=== PATIENT | female | born 2000 | race Caucasian/White ===

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

== ENCOUNTER → 2022-05-19 09:49 | Outpatient (CLI) | payer OTHER, SELFPAY ==
--- NOTE | 2022-05-19 09:50 | MR_ITS ---
FINAL REPORT TECHNIQUE: Multiplanar and multisequence imaging of the lumbar spine was obtained without contrast. CLINICAL HISTORY: back pain. right sided leg and back pain. symptoms for years. FINDINGS: There is normal alignment of the lumbar vertebral bodies. Vertebral body height is preserved. The spinal cord ends at the level of L1. There is normal signal intensity within the substance of the distal spinal cord. Bone marrow signal intensity is normal. No acute paraspinal abnormality is identified. L1-2: There is no focal disc herniation, central canal stenosis or neuroforaminal narrowing. L2-3: There is no focal disc herniation, central canal stenosis or neuroforaminal narrowing. L3-4: An annular disc bulge is present. There is no canal stenosis or neural foraminal narrowing. L4-5: There is a central disc protrusion moderate to severe central canal stenosis. There is bilateral facet osteoarthropathy, right greater than left. There is mild bilateral neural foraminal narrowing. L5-S1: Disc protrusion with moderate central canal stenosis. IMPRESSION: Central disc protrusions at L4-5 and L5-S1. Reviewed, Interpreted and Dictated by Kasey Oleary MD Transcribed by Leydi Torres Authenticated and . [facility]
== END ==
PROVIDERS: PCP Emergency Medicine; Visit Provider Emergency Medicine
DX: M54.9 Dorsalgia, unspecified (principal); M54.50 Low back pain, unspecified
CPT/HCPCS: 72148; 76376

== ENCOUNTER 2022-06-15 08:30 | Outpatient (RCR) | payer OTHER, SELFPAY ==
--- NOTE | 2022-05-19 09:40 | HMH.PTOPEV ---
PT Outpatient Evaluation Rehab PT Outpatient Evaluation Start: 05/19/22 08:38 Freq: Status: Active Protocol: Document 05/19/22 09:13 PROMISE (Rec: 05/19/22 09:38 PROMISE [id number]) E-signed By Brandon Velázquez, PT Outpatient Therapy Subjective History Subjective History Patient is a 21 year old female presenting to outpatient PT with reports of chronic LBP with intermittent RLE radicular symptoms to right knee and foot. Most recent imaging indicates multi -level disc bulges. Patient reports initial injury occurred in 2019 after a slip and fall on ice. Comorbidities include hx of anxiety/ depression. Chief Complaint Pain,Paresthesia Symptom Type Ache,Shooting Symptoms Relieved By Rest/Positioning,OTC Meds Symptoms Aggravated By Standing,Physical Activity, Walking Prior Functional Limitations None Current Functional Limitations Reaching,Lifting,Housework, Standing,Walking,Bending/ Stooping Symptom Description Constant but Variable Level of pain today (0-10) 3 Pain scale - at its best (0-10) 3 Pain scale - at its worst (0-10) 6 Lumbopelvic Eval Posture Thoracic Spine Posture Standing Position Neutral Lumbar Spine Posture Standing Position Increased Lordosis Palapation tenderness bilateral lumbar spinal tenderness Yes: L2-5 3/4 Accessory Movement L2 bilateral L3 bilateral L4 bilateral Range of Motion Lumbar Spine Active Flexion Range of 40 Motion (degrees) Lumbar Spine Active Extension Range of 15 Motion (degrees) Left Lumbar Spine Lateral Flexion Active 12 Range of Motion (degrees) Right Lumbar Spine Lateral Flexion 16 Active Range of Motion (degrees) Lumbar Spine ROM Limitations Soft Tissue Tightness,Bony Restriction Manual Muscle Test Left Knee Extension Strength Grade 4- Good- Altered Sensation Right LE Dermatome Level L5,S1 Special Tests Hip Gaston (CAROLYN) Test Positive Left,Positive Right Hip Rosmery Test Positive Left,Positive Right Hip Piriformis Test Positive Left,Positive Right Shon Test Positive Sacroiliac Joint Compression Test Negative Left,Negative Right Sacroiliac Joint Distraction Test Negative Left,Negative Right
--- NOTE | 2022-06-15 11:19 | HMH.RHREAS ---
Rehab Reassessment Rehab OP Re-assessment Start: 06/15/22 08:58 Freq: Status: Active Protocol: Document 06/15/22 11:13 PHOAdalbertoJACINDA (Rec: 06/15/22 11:18 PHORJACINDA [id number]) E-signed By Papo Gilmore, PT Rehab Re-assessment Subjective Subjective Pt reports pain 3/10 in low back this am. I don't have any shooting in muy legs, it's pretty much in my back only now. Objective Objective Notes Lumbar AROM (in deg): FLEX= 0- 50, EXT= 0-20, R SB= 0-20, L SB= 0-20. Pain 3/10 this date. Assessment Progress Assessment Progressing as Expected Assessment Notes Pt has shown significant reduction in muscle tightness in B LE and lumbar paraspinals to this point. Reduced pain noted as well with no radicular symptoms in R LE at this time. She does continue to c/o pain in the lumbar spine, worse with certain movements. She continues to need skilled intervention to return to prior level of function. Patient goals met ST,2 Goals Not Met LT,2,3,4,5,6,7 Revised Goals none Plan Plan Continue per initial POC Frequency of Therapy 2 x/wk Duration of therapy 4 wks Time and Billing Re-Eval Time 15 Re-Eval Billing Units 1 PHYSICIAN CERTIFICATION: I certify the specified therapy services for Janey Bone are required, authorized, and reviewed every 30 days.
== END 2022-06-15 08:35 | disposition home or self-care (01) ==
LOC: PT 08:30
PROVIDERS: PCP Emergency Medicine; Visit Provider Emergency Medicine
DX: M54.9 Dorsalgia, unspecified (principal); M54.50 Low back pain, unspecified
CPT/HCPCS: 97010; 97014; 97110; 97163; 97164; G0283

== ENCOUNTER 2022-12-13 09:47 | Emergency (ER) | payer OTHER, SELFPAY ==
[2022-12-13 10:00] VITALS: BP 113/68; PULSE 100; RESP 20; TEMP 36.9; O2SAT 98; BMI 27.9
[2022-12-13 10:20] LABS: UTC Strep Screen (Rapid) Negative (Negative)
--- NOTE | 2022-12-13 10:28 | EXP.UTC ---
Discharge Plan Disposition Patient Disposition: Home, Self-Care Condition: Good Prescriptions Prescriptions: New fluticasone propionate [Flonase Allergy Relief] 50 mcg/actuation spray,suspension 1 - 2 spray intranasal DAILY Qty: 16 0RF Rx Instructions: administer into each nostril No Action buspirone 10 mg tablet 10 mg PO BID Qty: 60 1RF Vraylar 1.5 mg capsule 1.5 mg PO DAILY Qty: 30 1RF Referrals Follow up/Referrals: Jung Dhillon MD [Primary Care Provider] - See instructions Activity Restrictions/Add. Instructions Additional Instructions/Restrictions: *Monitor Temp, Over the counter Motrin or Tylenol as directed/as needed Tylenol every 4 hours and Motrin every 6 hours (as long as your family doctor has told you that you can take it) for fever or pain. and straight to ER if unable to lower temp less than 101.0 after medication given *Warm salt water gargles may help to soothe the throat *Throat Lozenges? *Warm fluids like tea with honey may help to soothe the throat? *Sleep elevated *Humidifier/Vaporizer *Flonase 2 sprays in each nostril daily but be aware that it may take 2-3 days before you notice improvement Follow up IMMEDIATELY for new or worsening symptoms or no Noticeable improvement over the next 48-72 hours. 911 for difficulty breathing or swallowing Clinical Impressions Clinical Impression: Dysfunction of left eustachian tube Instructions Patient Instructions: DI for Eustachian Tube Dysfunction-Adult Discharge ED Provider: Desi Fernandez [facility] General Stated complaint: ear pain sore throat Mode of Arrival: Ambulatory Source of Information: Patient Limitations: No Limitations Time Seen by Provider: 12/13/22 10:28 Description of Symptoms (Recalled from Triage Doc. by RN): PATIENT C/O SORE THROAT AND LEFT EAR PAIN SINCE YESTERDAY HEENT Symptoms (Recalled from RN notes): Yes Resp Symptoms (Recalled from RN notes): No Skin Symptoms (Recalled from RN notes): No MS Symptoms (Recalled from RN notes): No Functional Status (Recalled from RN notes): WNL History of Present Illness Provider Complaint: Patient states that she has been having sore throat and ear pain/fullness since yesterday States that today she was still hurting so she came in to get checked Related Data Previous Rx's Medication Instructions Recorded buspirone 10 mg tablet 10 mg PO BID #60 tabs 10/26/22 cariprazine 1.5 mg capsule 1.5 mg PO DAILY #30 caps 10/26/22 (Vraylar) fluticasone propionate 50 1 - 2 spray intranasal DAILY #16 12/13/22 mcg/actuation nasal grams spray,suspension (Flonase Allergy Relief) Allergies Allergy/AdvReac Type Severity Reaction Status Date / Time No Known Allergies Allergy Verified 10/26/22 10:32 Worker's Comp Is this a Worker's Comp case?: No [facility] Disclaimer: The information contained in this section may have been updated after the patient was seen, as this information can be updated by other users. 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 (Updated 12/13/22 @ 10:30 by Desi Fernandez APRN) Generalized anxiety disorder Major depressive disorder Family History (Updated 07/06/22 @ 09:45 by Angela Rasheed APRN) Mother Substance abuse FHx: mental illness Father Alcoholism Social History (Updated 07/06/22 @ 09:22 by Angela Rasheed APRN) Smoking Status: Never smoker second hand exposure: No alcohol intake: never counseling given: No substance use type: marijuana counseling given: Yes (she states that she does this for pain; she doesn't want narcotics) current occupational status: employed Travel in the last 8 weeks: None adopted: No caregiver/support person: No foster care: No household members: significant other and other details: brother housing: house lives independently: Yes marital status: single number of children: 0 number of grandchildren: 0 service: No nursing h
[2022-12-13 10:35] VITALS: BP 113/68; PULSE 100; RESP 20; TEMP 36.9; O2SAT 98
== END 2022-12-13 10:43 | disposition home or self-care (01) ==
LOC: ER 09:52 → UTC 09:52
PROVIDERS: Emergency Provider Nurse Practitioner; PCP Emergency Medicine
DX: H69.92 Unspecified Eustachian tube disorder, left ear (principal); F41.1 Generalized anxiety disorder; F33.9 Major depressive disorder, recurrent, unspecified
CPT/HCPCS: 87880; 99212; 99213; G0463

== ENCOUNTER 2023-02-01 10:40 | Emergency (ER) | payer OTHER, SELFPAY ==
[2023-02-01 11:15] VITALS: BP 116/71; PULSE 93; RESP 18; TEMP 36.9; O2SAT 99; BMI 27.8
[2023-02-01 11:34] LABS: UTC Influenza A Antigen Negative (Negative); UTC Influenza B Antigen Negative (Negative)
--- NOTE | 2023-02-01 11:44 | EXP.UTC ---
Discharge Plan Disposition Patient Disposition: Home, Self-Care Condition: Good Prescriptions Prescriptions: New ondansetron 4 mg tablet,disintegrating 4 mg PO Q8H PRN (Reason: nausea and vomiting) Qty: 7 0RF No Action buspirone 10 mg tablet 10 mg PO BID Qty: 60 1RF Vraylar 1.5 mg capsule 1.5 mg PO DAILY Qty: 30 1RF Referrals Follow up/Referrals: Hubert Hurley DO [Primary Care Provider] - See instructions Activity Restrictions/Add. Instructions Additional Instructions/Restrictions: Monitor temperature. Seek treatment if fever develops. Follow-up immediately if new or worse symptoms worsen or no noticeable improvement over 48 hours. Increase fluids such as water, Gatorade, Powerade, juice or Pedialyte with limited formula/dietary in children No food is okay as long as you are drinking. Once ready to eat start bland such as bananas, rice, applesauce, toast. Contagious until no diarrhea, vomiting, fever times 48 hours without medication Avoid antidiarrheals unless told otherwise. Best to let the virus run its course. Follow-up immediately for new or worsening symptoms or no noticeable improvement over the next 48 hours. Clinical Impressions Clinical Impression: Nausea & vomiting Qualifiers: Vomiting type: unspecified Qualified Code(s): R11.2 - Nausea with vomiting, unspecified Diarrhea Qualifiers: Diarrhea type: unspecified type Qualified Code(s): R19.7 - Diarrhea, unspecified Stand Alone Forms Stand Alone Forms: Work/School Release Instructions Patient Instructions: Nausea and Vomiting-Adult, Diarrhea [facility]charge [facility]Gavin [facility] [place] HPI General Stated complaint: vomiting,diarrhea,headache Mode of Arrival: Ambulatory Source of Information: Patient Limitations: No Limitations Time Seen by Provider: 02/01/23 11:44 Description of Symptoms (Recalled from Triage Doc. by RN): nasuea, vomiting, MANN, and diarrhea HEENT Symptoms (Recalled from RN notes): Yes Resp Symptoms (Recalled from RN notes): No Skin Symptoms (Recalled from RN notes): No MS Symptoms (Recalled from RN notes): No Functional Status (Recalled from RN notes): n/a History of Present Illness Provider Complaint: 22 yr old female presents nausea, vomiting, MANN, and diarrhea, denies fever Related Data Previous Rx's Medication Instructions Recorded buspirone 10 mg tablet 10 mg PO BID #60 tabs 12/28/22 cariprazine 1.5 mg capsule 1.5 mg PO DAILY #30 caps 12/28/22 (Vraylar) ondansetron 4 mg disintegrating 4 mg PO Q8H PRN nausea and 02/01/23 tablet vomiting #7 tabs Allergies Allergy/AdvReac Type Severity Reaction Status Date / Time No Known Allergies Allergy Verified 02/01/23 11:24 Worker's Comp Is this a Worker's Comp case?: No PFSH PFS Disclaimer: The information contained in this section may have been updated after the patient was seen, as this information can be updated by other users. 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) Smoking Status: Never smoker second hand exposure: No alcohol intake: never counseling given: No substance use type: marijuana counseling given: Yes (she states that she does this for pain; she doesn't want narcotics) current occupational status: employed Travel in the last 8 weeks: None adopted: No caregiver/support person: No foster care: No household members: significant other and other details: brother housing: house lives independently: Yes marital status: single number of children: 0 number of grandchildren: 0 service: No mcfp: No Hx Recent Travel: No sexually active: Yes are you practici
[2023-02-01 12:21] VITALS: BP 116/71; PULSE 93; RESP 18; TEMP 36.9; O2SAT 99
[2023-02-01 14:09] LABS: Adenovirus,PCR Not Detected (NotDetected); Coronavirus 19, PCR Not Detected (NotDetected); Coronavirus 229E Not Detected (NotDetected); Coronavirus NL63 Not Detected (NotDetected); Coronavirus OC43 Not Detected (NotDetected); Coronovirus HKU1,PCR Not Detected (NotDetected); Human Metapneumovirus Not Detected (NotDetected); Influenza A, PCR Not Detected (NotDetected); Influenza AH1, 2009 Not Detected (NotDetected); Influenza AH1, PCR Not Detected (NotDetected); Influenza AH3,PCR Not Detected (NotDetected); Influenza B, PCR Not Detected (NotDetected); Parainfluenza 1, PCR Not Detected (NotDetected); Parainfluenza 2, PCR Not Detected (NotDetected); Parainfluenza 3, PCR Not Detected (NotDetected); Parainfluenza 4, PCR Not Detected (NotDetected); Respiratory Syncytial Virus Not Detected (NotDetected); Rhinovirus/Enterovirus Not Detected (NotDetected)
== END 2023-02-01 12:15 | disposition home or self-care (01) ==
PROVIDERS: Emergency Provider Nurse Practitioner Family; PCP Internal Medicine
DX: R11.2 Nausea with vomiting, unspecified (principal); R19.7 Diarrhea, unspecified; R51.9 Headache, unspecified
CPT/HCPCS: 87632; 87635; 87804; 99212; 99214; G0463

== ENCOUNTER 2023-03-10 18:24 | Outpatient (CLI) | payer OTHER, SELFPAY ==
[2023-03-10 18:26] LABS: Basophils # 0.1 K/mm3 (0-0.2); Basophils % 0.5 % (0.1-2.0); Eosinophils % 0.2 % (0.1-12.0); Hematocrit 37.9 % (37.0-47.0); Hemoglobin 14.2 g/dL (12.2-16.2); Lymphocytes # 1.9 K/mm3 (0.7-4.5); Lymphocytes % 21.9 % (10-50); Mean Corpuscular HGB Conc 37.6 g/dL (31.8-35.4); Mean Corpuscular Hemoglobin 34.7 pg (27.0-31.2); Mean Corpuscular Volume 92.1 fl (81-99); Mean Platelet Volume 8.9 fl (7.4-10.4); Monocytes # 0.4 K/mm3 (0.1-1.0); Monocytes % 4.4 % (1.7-9.3); Neutrophils # 6.4 K/mm3 (1.8-7.8); Neutrophils % 73.1 % (37.0-80.0); Platelet Count 285 K/mm3 (142-424); Red Blood Count 4.11 M/mm3 (4.20-5.40); Red Cell Distribution Width 12.6 % (11.5-17.5); White Blood Count 8.8 K/mm3 (4.5-13.0)
[2023-03-10 19:45] LABS: Chloride 105 mmol/L (98-107); Potassium 3.9 mmoL/L (3.5-5.1); Sodium 142 mmol/L (136-145)
[2023-03-10 19:48] LABS: Alanine Aminotransferase 25 U/L (12-78); Albumin Level 4.8 g/dl (3.5-5.0); Albumin/Globulin Ratio 1.7 (1.1-1.8); Alkaline Phosphatase 52 U/L (38-126); Anion Gap 16.9 mEq/L (5-15); Aspartate Amino Transferase 25 U/L (14-36); Bilirubin,Total 0.7 mg/dl (0.2-1.3); Blood Urea Nitrogen 10 mg/dl (7-17); Carbon Dioxide 24 mmol/L (22.0-30.0); Estimated Glomerular Filt Rate 127 ml/min (>60); GFR (African American) 154 ML/MIN (>60); Globulin 2.8 g/dL (1.3-3.2); Total Protein,Serum 7.6 g/dl (6.3-8.2)
[2023-03-10 19:49] LABS: Calcium 9.3 mg/dl (8.4-10.2); Glucose 77 mg/dl (74-100)
[2023-03-13 15:09] LABS: Tissue Transglutaminase IgA Ab <2 U/mL (0-3); Tissue Transglutaminase IgG Ab 8 U/mL (0-5)
== END 2023-03-10 23:59 ==
LOC: LAB.DROPOF 18:24
PROVIDERS: PCP Internal Medicine; Visit Provider Internal Medicine
DX: K52.9 Noninfective gastroenteritis and colitis, unspecified (principal); R11.2 Nausea with vomiting, unspecified; R19.7 Diarrhea, unspecified; R76.8 Other specified abnormal immunological findings in serum
CPT/HCPCS: 80053; 83516; 85025

== ENCOUNTER 2023-03-14 15:02 | Emergency (ER) | payer OTHER, SELFPAY ==
[2023-03-14 15:32] VITALS: BP 130/84; PULSE 100; RESP 18; TEMP 36.9; O2SAT 96; BMI 29.9
--- NOTE | 2023-03-14 15:35 | US_ITS ---
FINAL REPORT CLINICAL HISTORY: ruq pain and vomitngi COMPARISON: None FINDINGS: Sonographic images of the right upper quadrant were obtained. The pancreas is partially obscured.The liver has an unremarkable appearance. No gallstones are seen, although decubitus images suggest that there is minimal sludge present in the gallbladder. There is no evidence of biliary ductal dilatation.The common duct measures 2 mm. Limited images of the right kidney are unremarkable. IMPRESSION: Decubitus views suggest that there is minimal sludge present in the gallbladder. No biliary ductal dilatation is seen. Reviewed, Interpreted and Dictated by Sam Mackey MD Transcribed by Nidia Archuleta Authenticated and [facility]
[2023-03-14] MEDS: ONDANSETRON 4MG/2ML VIAL 4 MG IV (15:43)
[2023-03-14] MEDS: KETOROLAC 30MG/ML VIAL 15 MG IV (15:43)
[2023-03-14] MEDS: LACTATED RINGERS 1000ML 1,000 ML 999 ML IV (15:44)
[2023-03-14] MEDS: ACETAMINOPHEN 1,000MG/100ML VIAL 1000 MG IV (15:44)
[2023-03-14 15:48] LABS: Microscopic, Urine URINE MICROSCOPIC (MICROSCOPIC)
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
[2023-03-14 15:53] LABS: Appearance,Urine CLEAR (Clear); Blood, Urine Negative (Negative); Color,Urine YELLOW (Yellow); Glucose,Urine (UA) Negative (Negative); Ketones,Urine 2+ (Negative); Leukocyte Esterase,Urine Negative (Negative); Nitrate,Urine Negative (Negative); Protein,Urine TRACE (Negative); Specific Gravity, Urine >= 1.030 (1.005-1.030); Urobilinogen,Urine 0.2 EU/dl (0.2)
[2023-03-14 15:54] LABS: Basophils % 0.4 % (0.1-2.0); Eosinophils % 0.3 % (0.1-12.0); Hematocrit 42.8 % (37.0-47.0); Lymphocytes # 1.7 K/mm3 (0.7-4.5); Lymphocytes % 18.3 % (10-50); Mean Corpuscular HGB Conc 32.7 g/dL (31.8-35.4); Mean Corpuscular Hemoglobin 30.3 pg (27.0-31.2); Mean Corpuscular Volume 92.7 fl (81-99); Mean Platelet Volume 8.4 fl (7.4-10.4); Monocytes # 0.5 K/mm3 (0.1-1.0); Monocytes % 5.7 % (1.7-9.3); Neutrophils # 6.8 K/mm3 (1.8-7.8); Neutrophils % 75.3 % (37.0-80.0); Platelet Count 298 K/mm3 (142-424); Red Blood Count 4.61 M/mm3 (4.20-5.40); Red Cell Distribution Width 12.6 % (11.5-17.5); White Blood Count 9.1 K/mm3 (4.5-13.0)
[2023-03-14 15:55] LABS: Chloride 107 mmol/L (98-107); Sodium 140 mmol/L (136-145)
[2023-03-14 15:56] LABS: Bilirubin,Urine 1+ (Negative)
[2023-03-14 15:56] LABS: Potassium 3.7 mmoL/L (3.5-5.1)
[2023-03-14 15:58] LABS: Alanine Aminotransferase 30 U/L (12-78); Anion Gap 11.7 mEq/L (5-15); Aspartate Amino Transferase 30 U/L (14-36); Bilirubin,Total 0.6 mg/dl (0.2-1.3); Blood Urea Nitrogen 7 mg/dl (7-17); Carbon Dioxide 25 mmol/L (22.0-30.0); Creatinine Clearance Estimated 181 mL/min (50-200); Estimated Glomerular Filt Rate 127 ml/min (>60); GFR (African American) 154 ML/MIN (>60)
[2023-03-14 15:59] LABS: Albumin Level 4.6 g/dl (3.5-5.0); Albumin/Globulin Ratio 1.5 (1.1-1.8); Alkaline Phosphatase 54 U/L (38-126); Calcium 9.4 mg/dl (8.4-10.2); Globulin 3.1 g/dL (1.3-3.2); Glucose 106 mg/dl (74-100); Total Protein,Serum 7.7 g/dl (6.3-8.2)
[2023-03-14 16:04] LABS: C-Reactive Protein 0.8 mg/L (0-4)
[2023-03-14 16:08] LABS: RBC,Urine Occasional #/hpf (0-3)
[2023-03-14 16:09] LABS: Bacteria,Urine Trace /lpf
[2023-03-14 16:20] LABS: HCG,Quantitative < 2 mIU/ml (0-5.42)
[2023-03-14 16:21] LABS: Erythrocyte Sedimentation Rate 9 mm/hr (0-20)
[2023-03-14 16:42] LABS: Lipase 32 U/L (23-300)
[2023-03-14 17:25] VITALS: BP 124/72; PULSE 92; RESP 18; TEMP 36.9; O2SAT 98
== END 2023-03-14 17:27 | disposition home or self-care (01) ==
PROVIDERS: Emergency Provider Emergency Medicine; PCP Internal Medicine
DX: R10.84 Generalized abdominal pain (principal); R11.2 Nausea with vomiting, unspecified; R19.7 Diarrhea, unspecified; R63.4 Abnormal weight loss
CPT/HCPCS: 76705; 80053; 81001; 83690; 84702; 85025; 85651; 86140; 96361; 96374; 96375; 99285; J0131; J2405

== ENCOUNTER 2023-03-22 13:54 | Outpatient (CLI) | payer OTHER, SELFPAY ==
[2023-03-22 13:59] LABS: Adenovirus F 40/41, stool Not Detected (NotDetected); Astrovirus Not Detected (NotDetected); Campylobacter Not Detected (NotDetected); Clostridium Difficile A/B, PCR Not Detected (NotDetected); Cryptosporidium Not Detected (NotDetected); Cyclospora Cayetanesis Not Detected (NotDetected); Entamoeba histolytica Not Detected (NotDetected); Enteroaggregative E coli Not Detected (NotDetected); Enteropathogenic E coli Not Detected (NotDetected); Enterotoxigenic E coli Not Detected (NotDetected); Giardia lamblia Not Detected (NotDetected); Norovirus Not Detected (NotDetected); Plesimonas Shigalloides, PCR Not Detected (NotDetected); Rotavirus A Not Detected (NotDetected); Salmonella, PCR Not Detected (NotDetected); Sapovirus Not Detected (NotDetected); Shiga-like toxin E coli Not Detected (NotDetected); Shigella Enterovasive E coli Not Detected (NotDetected); Vibrio Cholerae Not Detected (NotDetected); Vibrio, PCR Not Detected (NotDetected); Yersinia Entercolitica, PCR Not Detected (NotDetected)
[2023-03-26 22:08] LABS: Calprotectin, Fecal 122 ug/g (0-120)
== END 2023-03-22 23:59 ==
LOC: LAB.DROPOF 13:55
PROVIDERS: PCP Internal Medicine; Visit Provider Internal Medicine
DX: R10.9 Unspecified abdominal pain (principal); R11.2 Nausea with vomiting, unspecified; R19.7 Diarrhea, unspecified; R89.3 Abnormal level of substances chiefly nonmedicinal as to source in specimens from other organs, systems and tissues; R19.5 Other fecal abnormalities
CPT/HCPCS: 83993; 87507

== ENCOUNTER 2023-05-11 12:47 | Day surgery (SDC) | payer OTHER, SELFPAY ==
[2023-05-08 13:02] VITALS: BMI 28.1
[2023-05-11 13:24] VITALS: BP 110/60; PULSE 89; RESP 16; TEMP 36.1; O2SAT 98
[2023-05-11] MEDS: LACTATED RINGERS 1000ML 1,000 ML 25 ML IV (13:29)
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
[2023-05-11 13:44] LABS: Urine Pregnancy, HCG Qual. Negative (Negative)
[2023-05-11 14:06] VITALS: O2SAT 98
[2023-05-11 14:20] VITALS: BP 98/54; PULSE 111; RESP 16; O2SAT 92
[2023-05-11 14:30] VITALS: BP 97/60; PULSE 86; RESP 16; O2SAT 99
[2023-05-11 14:40] VITALS: BP 102/56; PULSE 86; RESP 16; O2SAT 99
--- NOTE | 2023-05-25 13:42 | HMH.SCOPE ---
Procedure: Date: 05/25/23 Patient Date of :: 2000 Procedure Performed:: EGD & biopsies Indications:: Epigastric pain, Nausea/Vomiting Performing Provider:: Sridevi Dunham MD Referring Provider:: Marilia Dunham APRN Sedation:: Propofol Procedure:: The gastroscope was gently passed through the incisoral orifice into the oral cavity and under direct visualization the esophagus was intubated. The endoscope was passed down the esophagus, through the stomach, and into the duodenum. Color, texture, mucosa, and anatomy of the esophagus, stomach, and duodenum were carefully examined with the scope. Findings:: Oropharynx: normal Esophagus: normal, mild distal esophagitis EG Junction: intact at 40 cm Cardia: normal Fundus: normal Body: normal, biopsied for h.pylori Antrum: normal Duodenal bulb: normal Duodenum (second and third portion): normal, biopsied for celiac disease Impression: Mild distal esophagitis from vomiting otherwise normal EGD exam Specimens:: Gastric and small bowel Recommendations:: Refrain from Cannabis use and excessive vaping Complications:: None Estimated blood obtained (mL): 0 Colonoscopy Component Colonoscopy Component Was a colonoscopy performed during today's procedure?: No
== END 2023-05-11 14:50 | disposition home or self-care (01) ==
PROVIDERS: PCP Internal Medicine; Visit Provider Internal Medicine Gastroenterology
PROC: 0DJ08ZZ Inspection of Upper Intestinal Tract, Via Natural or Artificial Opening Endoscopic (ICD-10-PCS; CPT 43235; principal; 2023-05-11 14:00)
DX: K20.90 Esophagitis, unspecified without bleeding (principal); G43.D0 Abdominal migraine, not intractable; R10.13 Epigastric pain; R11.2 Nausea with vomiting, unspecified; K31.89 Other diseases of stomach and duodenum
CPT/HCPCS: 43239; 81025

== ENCOUNTER 2023-06-29 17:22 | Emergency (ER) | payer OTHER, SELFPAY ==
--- NOTE | 2023-06-29 17:28 | XR_ITS ---
PROCEDURE INFORMATION: Exam: XR Left Elbow Exam date and time: 06/29/2023 5:27 PM Age: 22 years old Clinical indication: Injury or trauma; Fall; Swelling (edema); Elbow; Left; Additional info: Pain TECHNIQUE: Imaging protocol: Radiologic exam of the left elbow. Views: 3 or more views. COMPARISON: CR XR SHOULDER LT MIN 2V 06/14/2019 11:23 PM FINDINGS: Bones/joints: Osseous alignment is normal. No acute fracture. No significant arthritic change or joint fluid. Soft tissues: Normal. IMPRESSION: Negative left elbow
[2023-06-29 17:30] VITALS: BP 128/78; PULSE 101; RESP 19; TEMP 36.8; O2SAT 98; BMI 26.5
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
[2023-06-29 18:37] VITALS: BP 128/78; PULSE 101; RESP 19; TEMP 36.8; O2SAT 98
== END 2023-06-29 18:48 | disposition home or self-care (01) ==
PROVIDERS: Emergency Provider Nurse Practitioner Family; PCP Internal Medicine
DX: M25.522 Pain in left elbow (principal); S53.032A Nursemaid's elbow, left elbow, initial encounter; X50.9XXA Other and unspecified overexertion or strenuous movements or postures, initial encounter
CPT/HCPCS: 73080; 99212; 99214; G0463

== ENCOUNTER 2023-08-10 14:04 | Emergency (ER) | payer OTHER, SELFPAY ==
[2023-08-10 14:10] VITALS: BP 106/60; PULSE 90; RESP 20; TEMP 36.8; O2SAT 99; BMI 26.5
[2023-08-10 14:25] LABS: UTC Strep Screen (Rapid) Negative (Negative)
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
[2023-08-10 14:40] VITALS: BP 106/60; PULSE 90; RESP 20; TEMP 36.8; O2SAT 99
== END 2023-08-10 14:44 | disposition home or self-care (01) ==
PROVIDERS: Emergency Provider Nurse Practitioner Family; PCP Internal Medicine
DX: H66.92 Otitis media, unspecified, left ear (principal); J02.9 Acute pharyngitis, unspecified; R09.81 Nasal congestion
CPT/HCPCS: 87880; 99212; 99214; G0463

== ENCOUNTER 2023-11-23 16:11 | Emergency (ER) | payer BC, SELFPAY ==
[2023-11-23 16:34] VITALS: BP 102/60; PULSE 98; RESP 20; TEMP 37; O2SAT 99; BMI 30.4
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
[2023-11-23] MEDS: KETOROLAC 60MG/2ML VIAL 60 MG IM (17:09)
[2023-11-23] MEDS: DEXAMETHASONE 4MG/ML 1ML VIAL 8 MG IM (17:10)
[2023-11-23 17:28] VITALS: BP 102/60; PULSE 98; RESP 20; TEMP 37
== END 2023-11-23 17:29 | disposition home or self-care (01) ==
PROVIDERS: Emergency Provider Nurse Practitioner Family; PCP Internal Medicine
DX: M54.50 Low back pain, unspecified (principal)
CPT/HCPCS: 96372; 99213; G0381; J1100; J1885